=== PATIENT | female | born 1965 | race Caucasian/White ===

== ENCOUNTER 2022-09-24 19:31 | Emergency (ER) | payer MEDICAID ==
[~2022-09-24] VITALS: Ht 170.2 cm; Wt 106.8 kg
[2022-09-24 19:45] LABS: BASOPHILS # (AUTO) 0.1 X10'3 (0-0.2); BASOPHILS % (AUTO) 0.9 % (0-1); EOSINOPHILS # (AUTO) 0.7 X10'3 (0-0.9); EOSINOPHILS % (AUTO) 6.9 % (0-6); HEMATOCRIT 43.1 % (35.0-45.0); HEMOGLOBIN 14.5 g/dl (12.0-16.0); LYMPHOCYTES # (AUTO) 2.6 X10'3 (1.1-4.8); LYMPHOCYTES % (AUTO) 26.5 % (21-51); MEAN CORPUSCULAR HEMOGLOBIN 29.5 PG (27.0-31.0); MEAN CORPUSCULAR HGB CONC 33.7 g/dL (33.0-36.5); MEAN CORPUSCULAR VOLUME 87.5 FL (78-98); MEAN PLATELET VOLUME 7.2 FL (7.4-10.4); MONOCYTES # (AUTO) 0.8 X10'3 (0-0.9); MONOCYTES % (AUTO) 7.8 % (2-12); NEUTROPHILS # (AUTO) 5.6 X10'3 (1.8-7.7); NEUTROPHILS % (AUTO) 57.9 % (42-75); PLATELET COUNT 290 X10'3 (140-440); RED BLOOD COUNT 4.92 X10'6 (4.20-5.60); RED CELL DISTRIBUTION WIDTH 13.3 % (11.5-14.5); WHITE BLOOD COUNT 9.7 X10'3 (4.5-11.0)
[2022-09-24 20:16] LABS: TOTAL CARBON DIOXIDE 30.4 MMOL/L (24-32)
[2022-09-24 20:33] LABS: ALANINE AMINOTRANSFERASE 38 U/L (12-78); ALBUMIN 3.5 G/DL (3.4-5.0); ALBUMIN/GLOBULIN RATIO 1.1 (1.1-1.5); ALKALINE PHOSPHATASE 113 IU/L (46-116); ANION GAP 5 (8-16); ASPARTATE AMINO TRANSFERASE 26 U/L (10-37); BILIRUBIN,TOTAL 0.4 MG/DL (0.1-1.0); BLOOD UREA NITROGEN 8 MG/DL (7-18); BUN/CREATININE RATIO 9.4 (6.6-38.0); CALCIUM 8.3 MG/DL (8.5-10.1); CHLORIDE 104 MMOL/L (99-107); CREATININE 0.85 MG/DL (0.40-0.90); GLUCOSE 105 MG/DL (70-104); MAGNESIUM 2.1 MG/DL (1.5-2.4); POTASSIUM 3.8 MMOL/L (3.5-5.1); SODIUM 139 MMOL/L (135-145); TOTAL PROTEIN 6.8 G/DL (6.4-8.2); eGFR 69 ML/MIN
--- NOTE | 2022-09-24 20:40 | NUR ---
GENERAL ASSESSMENT REVIEWED
[2022-09-24] MEDS ORDERED: amLODIPine 5mg tablet PO ONE (21:05)
[2022-09-24] MEDS ORDERED: AMLO5TAB4 PO (21:12)
[2022-09-24 21:23] VITALS: BP 165/114
== END 2022-09-24 21:26 | disposition home or self-care (01) ==
LOC: ER 19:32
DX: I10 Essential (primary) hypertension (principal)
CPT/HCPCS: 36415; 71045; 80053; 83735; 83880; 84484; 85025; 93005; 99285

== ENCOUNTER 2023-10-20 21:33 | Inpatient (IN) | payer MEDICAID ==
[~2023-10-20] VITALS: Ht 167.6 cm; Wt 108.0 kg
[~2023-10-20 21:33] MED LIST: AMLO5TAB4 PO
[2023-10-20 22:12] LABS: BASOPHILS # (AUTO) 0.1 X10'3 (0-0.2); BASOPHILS % (AUTO) 1.1 % (0-1); EOSINOPHILS # (AUTO) 0.6 X10'3 (0-0.9); EOSINOPHILS % (AUTO) 6.1 % (0-6); HEMATOCRIT 40.4 % (35.0-45.0); HEMOGLOBIN 13.7 g/dl (12.0-16.0); LYMPHOCYTES # (AUTO) 3.1 X10'3 (1.1-4.8); LYMPHOCYTES % (AUTO) 33.5 % (21-51); MEAN CORPUSCULAR HEMOGLOBIN 29.6 PG (27.0-31.0); MEAN CORPUSCULAR HGB CONC 33.9 g/dL (33.0-36.5); MEAN CORPUSCULAR VOLUME 87.3 FL (78-98); MEAN PLATELET VOLUME 7.4 FL (7.4-10.4); MONOCYTES # (AUTO) 0.8 X10'3 (0-0.9); MONOCYTES % (AUTO) 8.7 % (2-12); NEUTROPHILS # (AUTO) 4.7 X10'3 (1.8-7.7); NEUTROPHILS % (AUTO) 50.6 % (42-75); PLATELET COUNT 270 X10'3 (140-440); RED BLOOD COUNT 4.63 X10'6 (4.20-5.60); RED CELL DISTRIBUTION WIDTH 13.1 % (11.5-14.5); WHITE BLOOD COUNT 9.2 X10'3 (4.5-11.0)
[2023-10-20 22:38] LABS: ALBUMIN 3.5 G/DL (3.4-5.0); ANION GAP 10 (8-16); BLOOD UREA NITROGEN 15 MG/DL (7-18); BUN/CREATININE RATIO 14.7 (10.0-20.0); CALCIUM 7.6 MG/DL (8.5-10.1); CHLORIDE 106 MMOL/L (99-107); CREATININE 1.02 MG/DL (0.40-0.90); GLUCOSE 127 MG/DL (70-104); POTASSIUM 3.3 MMOL/L (3.5-5.1); PRO BRAIN NATRIURETIC PEPTIDE 56 PG/ML (0-125); SODIUM 143 MMOL/L (135-145); TOTAL CARBON DIOXIDE 27.1 MMOL/L (24-32); eCRCL 57 ML/MIN; eGFR 56 ML/MIN
[2023-10-20] MEDS: aspirin 81mg tab.chew PO ONE (22:44)
[2023-10-20] MEDS: nitroGLYCERIN 0.4mg SUBLingual tab SL PRN (22:44)
[2023-10-20 23:03] LABS: D-DIMER 0.44 MG/L FEU (0-0.50)
[2023-10-20] MEDS: potassium Cl 20 mEq SR tablet PO ONE (23:37)
[2023-10-21] VITALS (10 sets, daily range): BP systolic 135–162; BP diastolic 73–97; PULSE 61–73; RESP 12–16; TEMP 98; O2SAT 94–100
[2023-10-21] MEDS ORDERED: magnesium Cl slow-release 64mg tablet PO PRN (00:10)
[2023-10-21] MEDS: normal saline 1000ml 1,000 ML IV SCH (00:10)
[2023-10-21] MEDS ORDERED: HYDROcodone/acetaminophen 5mg/325mg tablet PO PRN (00:10)
[2023-10-21] MEDS ORDERED: magnesium 4gm in 100ml NS 100 ML IV PRN (00:10)
[2023-10-21] MEDS ORDERED: potassium Cl 40MEQ/1/2NS 520ml 520 ML IV PRN (00:10)
[2023-10-21] MEDS ORDERED: potassium Cl 20 mEq SR tablet PO PRN ×2 (00:10)
[2023-10-21] MEDS ORDERED: acetaminophen 325mg tablet PO PRN ×2 (00:10)
[2023-10-21] MEDS ORDERED: HYDROcodone/acetaminophen 10/325mg tab PO PRN (00:10)
[2023-10-21] MEDS ORDERED: magnesium 2GM in 50ml NS 50 ML IV PRN (00:10)
[2023-10-21] MEDS ORDERED: ondansetron/PF 4mg/2ml inj IV PRN (00:10)
[2023-10-21] MEDS ORDERED: morphine 2 MG/ML inj. syringe IV PRN ×2 (00:10)
[2023-10-21] MEDS ORDERED: metoprolol tartrate 1mg/ml inj IV PRN (00:15)
[2023-10-21] MEDS ORDERED: aminophylline 250mg/10ml inj. IV PRN (00:15)
[2023-10-21] MEDS ORDERED: nitroGLYCERIN 0.4mg SUBLingual tab SL PRN (00:15)
[2023-10-21 03:34] LABS: POTASSIUM 3.7 MMOL/L (3.5-5.1)
[2023-10-21] MEDS ORDERED: LOSA-416 PO (05:03)
[2023-10-21] MEDS: losartan 50mg tablet PO ONE (05:39)
[2023-10-21] MEDS: regadenoson 0.4mg/5ml syringe IV PRN (09:37)
[2023-10-21] MEDS ORDERED: ATOR20TA66 PO (12:38)
[2023-10-21] MEDS ORDERED: LOP25T PO (12:38)
[2023-10-21] MEDS ORDERED: enoxaparin 40mg/0.4ml syringe SQ SCH (20:00)
[2023-10-21] MEDS ORDERED: temazepam 15mg capsule PO PRN (21:00)
== END 2023-10-21 14:25 | disposition home or self-care (01) | DRG 203 ==
LOC: ER 21:33 → ED HOLD 10-21 00:13 → PCU 3S 10-21 07:00
PROVIDERS: ADMIT Internal Medicine; ATTEND Internal Medicine
PROC: 4A02XM4 Measurement of Cardiac Total Activity, External Approach (ICD-10-PCS; principal; 2023-10-21)
PROC: 3E033HZ Introduction of Radioactive Substance into Peripheral Vein, Percutaneous Approach (ICD-10-PCS; 2023-10-21)
DX: R07.2 Precordial pain (principal); E87.6 Hypokalemia; I10 Essential (primary) hypertension; Z20.822 Contact with and (suspected) exposure to COVID-19; Z88.1 Allergy status to other antibiotic agents; Z79.899 Other long term (current) drug therapy
CPT/HCPCS: 36415; 71045; 78452; 80048; 83880; 84132; 84484; 85025; 85379; 87811; 93005; 93017; 93306; 99285; A9500; G0378; J2785; J7030